=== PATIENT | female | born 1990 ===

== ENCOUNTER 2017-05-31 14:37 | Emergency (ER) | payer OTHER ==
[2017-05-31 14:58] VITALS: RESP 18
--- NOTE | 2017-05-31 15:47 | C.PDOC ---
History Of Present Illness 26 yr old female brought in via BLS, presents to the ER stating she had an argument with her and went to for a run and became anxious, dizzy and started having panic attacks. Patient reports she started to walk back home but felt dizzy and headache with palpitations. Patient states currently she feels dizzy and has a headache. Denies LOC, syncope, chest pain, nausea, vomiting, neck pain, weakness or numbness. 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 Cardiovascular: Positive for: Palpitations. Negative for: Chest Pain Gastrointestinal: Negative for: Nausea, Vomiting Musculoskeletal: Negative for: Neck Pain Neurological: Positive for: Headache, Dizziness. Negative for: Weakness, Numbness Physical Exam - Physical Exam Appears: Non-toxic, No Acute Distress Skin: Warm, Dry, No Rash Head: Atraumatic, Normacephalic Eye(s): bilateral: Normal Inspection, PERRL, EOMI Oral Mucosa: Moist Neck: Normal ROM, Supple Chest: Symmetrical, No Tenderness Cardiovascular: Rhythm Regular, No Friction Rub, No Murmur Respiratory: Normal Breath Sounds, No Rales, No Rhonchi, No Stridor, No Wheezing Extremity: Normal ROM, No Swelling Neurological/Psych: Oriented x3, Normal Speech, Normal Motor Gait: Steady ED Course And Treatment ECG: Interpreted By Me ECG Rhythm: Sinus Rhythm ECG Interpretation: Normal Rate From EC (bpm) O2 Sat by Pulse Oximetry: 97 (RA) Pulse Ox Interpretation: Normal Medical Decision Making Medical Decision Making: PLAN: * EKG EKG is normal. The patient is requesting medications for anxiety and is requesting klonopin. Xanax offered but patient refused, but then requests to take it. Patient has Klonopin at home, no Rx given. On re-exam, the patient reports the improvement of symptoms. Lungs are CTA, Lungs are CTA, Abdomen is soft, non-tender and patient is tolerating PO well. Patient is ambulatory in the ED with the steady gait. Follow up with the medical doctor within 1-2 days. Return if worsened. Disposition - Disposition Referrals: [facility] at [facility] [Outside] Disposition: HOME/ ROUTINE Disposition Time: 16:43 Condition: GOOD Additional Instructions: Follow up with the medical doctor within 1-2 days. Return if worsened. 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 - Scribe Statement The provider has reviewed the documentation as recorded by the Scribe Lashon Johnson All medical record entries made by the Abdifatahibedmond were at my direction and personally dictated by me. I have reviewed the chart and agree that the record accurately reflects my personal performance of the history, physical exam, medical decision making, and the department course for this patient. I have also personally directed, reviewed, and agree with the discharge instructions and disposition.
--- NOTE | 2017-05-31 16:42 | C.PDOC ---
Time Seen by Provider: 05/31/17 15:09 Chief Complaint (Nursing): Dizziness/Lightheaded Past Medical History Vital Signs: Last Vital Signs Temp 97.9 F 05/31/17 14:53 Pulse 80 05/31/17 14:53 Resp 18 05/31/17 14:53 BP 112/77 05/31/17 14:53 Pulse Ox 97 05/31/17 14:53 - Medical History PMH: Anxiety, Hypothyroidism - Social History Hx Alcohol Use: No Hx Substance Use: No - Immunization History Hx Tetanus Toxoid Vaccination: No Hx Influenza Vaccination: No Hx Pneumococcal Vaccination: No ED Course And Treatment O2 Sat by Pulse Oximetry: 97 Disposition - Disposition Forms: [facility] (Citizen [place])
[2017-05-31 16:53] VITALS: BP 110/71; PULSE 76; TEMP 97.1
[2017-05-31 23:09] VITALS: O2SAT 97
== END 2017-05-31 16:54 | disposition home or self-care (01) ==
LOC: C.ER 14:37
DX: F41.0 Panic disorder [episodic paroxysmal anxiety] (principal); R55 Syncope and collapse; R42 Dizziness and giddiness

== ENCOUNTER 2017-07-10 17:35 | Emergency (ER) | payer OTHER ==
[2017-07-10 18:02] VITALS: TEMP 99.2; O2SAT 100
[2017-07-10] MEDS ORDERED: Aspirin 325 mg EC Tablets PO STA (18:28)
--- NOTE | 2017-07-10 18:43 | C.PDOC ---
History Of Present Illness 26 y/o female with PMHx of Hypothyroidism and Anxiety presents to ED with complaints of constant mid sternal chest pain that developed gradually today. Patient states pain developed to be "burning" and she became anxious. Patient states she took Klonopin and symptoms subsided but came for evaluation. Patient reports she carries her big baby and her initial thought was that this was muscular pain. Patient denies shortness of breath, cough, fever, chills, nausea or any other complaints at this time. Time Seen by Provider: 07/10/17 18:24 Chief Complaint (Nursing): Chest Pain History Per: Patient History/Exam Limitations: no limitations Onset/Duration Of Symptoms: Hrs Current Symptoms Are (Timing): Still Present Quality: Burning Past Medical History Reviewed: Historical Data, Nursing Documentation, Vital Signs Vital Signs: Last Vital Signs Temp 99.2 F 07/10/17 18:00 Pulse 90 07/10/17 18:00 Resp 18 07/10/17 18:00 BP 132/69 07/10/17 18:00 Pulse Ox 100 07/10/17 19:48 - Medical History PMH: Anxiety, Hypothyroidism Surgical History: No Surg Hx Family History: States: No Known Family Hx - Social History Hx Alcohol Use: No Hx Substance Use: No - Immunization History Hx Tetanus Toxoid Vaccination: No Hx Influenza Vaccination: No Hx Pneumococcal Vaccination: No Review Of Systems Except As Marked, All Systems Reviewed And Found Negative. Constitutional: Negative for: Fever, Chills Cardiovascular: Positive for: Chest Pain Respiratory: Negative for: Cough, Shortness of Breath Gastrointestinal: Negative for: Nausea, Vomiting Skin: Negative for: Rash Neurological: Negative for: Dizziness Physical Exam - Physical Exam Appears: Non-toxic, No Acute Distress Skin: Normal Color, Warm, Dry, No Rash Head: Atraumatic, Normacephalic Eye(s): bilateral: Normal Inspection Oral Mucosa: Moist Neck: Normal ROM, Supple Chest: Tenderness (mild to low midsternum) Cardiovascular: Rhythm Regular Respiratory: No Rales, No Rhonchi, No Wheezing Gastrointestinal/Abdominal: Soft, No Tenderness, No Guarding, No Rebound Back: No CVA Tenderness Extremity: Normal ROM, Capillary Refill (<2 seconds) Neurological/Psych: Oriented x3, Normal Speech, Normal Motor, Normal Sensation ED Course And Treatment - Laboratory Results Result Diagrams: 07/10/17 19:04 07/10/17 19:04 Lab Interpretation: No Acute Changes ECG: Interpreted By Me ECG Rhythm: Sinus Rhythm ECG Interpretation: No Acute Changes O2 Sat by Pulse Oximetry: 100 (RA) Pulse Ox Interpretation: Normal - Radiology CXR: Interpreted by Me CXR Interpretation: Yes: No Acute Disease Reevaluation Time: 20:16 Reassessment Condition: Improved (Patient remains pain free in ED.) Disposition Counseled Patient/Family Regarding: Studies Performed, Diagnosis, Need For Followup - Disposition Referrals: [facility] [Outside] Disposition: HOME/ ROUTINE Disposition Time: 20:17 Condition: STABLE Instructions: Noncardiac Chest Pain (ED) Forms: [employer] ([place]) - Clinical Impression Clinical Impression: Chest pain - Scribe Statement The provider has reviewed the documentation as recorded by the Scribedmond Martinez All medical record entries made by the Scribe were at my direction and personally dictated by me. I have reviewed the chart and agree that the record accurately reflects my personal performance of the history, physical exam, medical decision making, and the department course for this patient. I have also personally directed, reviewed, and agree with the discharge instructions and disposition.
[2017-07-10 19:08] LABS: BASO % 0.3 % (0.0-2.0); EOS # 0.2 K/uL (0.0-0.7); EOS % 1.8 % (0.0-4.0); HEMATOCRIT 41.7 % (34.0-47.0); LYMPH # 2.1 K/uL (1.0-4.3); LYMPH % 21.8 % (20.0-40.0); MEAN CELL VOLUME 94.4 fL (81.0-99.0); MEAN CORPUSCULAR HEMOGLOBIN 32.2 pg (27.0-31.0); MEAN CORPUSCULAR HGB CONC 34.1 g/dL (33.0-37.0); MEAN PLATELET VOLUME 9.2 fL (7.2-11.7); MONO # 0.8 K/uL (0.0-0.8); MONO % 8.4 % (0.0-10.0); NRBC % 0.1 % (0.0-2.0); RED CELL DISTRIBUTION WIDTH 12.9 % (11.5-14.5); WHITE BLOOD COUNT 9.5 K/uL (4.8-10.8)
[2017-07-10 19:15] LABS: CHLORIDE 100 mmol/L (98-107)
[2017-07-10 19:16] LABS: SODIUM 134 mmol/L (132-148)
[2017-07-10 19:17] LABS: POTASSIUM 4.1 mmol/L (3.6-5.2)
[2017-07-10 19:19] LABS: ALB/GLOB RATIO 1.9 (1.0-2.1); ALKALINE PHOSPHATASE 52 U/L (38-126); ALT/SGPT 28 U/L (9-52); AST/SGOT 22 U/L (14-36); BILIRUBIN,TOTAL 0.4 mg/dL (0.2-1.3); BLOOD UREA NITROGEN 16 mg/dL (7-17); CALCIUM 9.7 mg/dl (8.6-10.4); CARBON DIOXIDE 25 mmol/L (22-30); GFR AFRICAN-AMERICAN > 60; GLUCOSE,RANDOM 84 mg/dL (65-105); TOTAL PROTEIN 6.9 g/dL (6.3-8.3)
[2017-07-10] MEDS ORDERED: Aspirin 325 mg EC Tablets PO ONE (19:41)
[2017-07-10 19:50] LABS: THYROID STIMULATING HORMONE 5.34 mIU/L (0.46-4.68)
[2017-07-10 20:27] VITALS: BP 116/72; PULSE 82; RESP 19
--- NOTE | 2017-07-11 08:32 | RAD ---
PROCEDURE: CHEST RADIOGRAPH, 1 VIEW HISTORY: chest pain COMPARISON: None available. FINDINGS: LUNGS: Mild venous congestion. Bibasilar breast prostheses. PLEURA: No pneumothorax or pleural fluid seen. CARDIOVASCULAR: Normal. OSSEOUS STRUCTURES: No significant abnormalities. VISUALIZED UPPER ABDOMEN: Normal. OTHER FINDINGS: None. IMPRESSION: Mild venous congestion. Bibasilar breast prostheses.
--- NOTE | 2017-07-11 23:02 | CARD ---
APPROVED REPORT EKG Measurement Heart [id number] <Conclusion> Normal sinus rhythm Possible Left atrial enlargement Borderline ECG
== END 2017-07-10 20:31 | disposition home or self-care (01) ==
LOC: C.ER 17:35
DX: R07.89 Other chest pain (principal)